=== PATIENT | female | born 1995 | race Caucasian/White ===

== ENCOUNTER → 2018-05-26 13:17 | Outpatient (CLI) | payer BC, MEDICAID, SELFPAY ==
--- NOTE | 2018-05-26 | CER_PTH ---
PATIENT: ANA AGUILAR LOC: [facility] U#:[id number] AGE/SX: 29/F ROOM: RE05/26/[address]: Dr. Ty Erazo MD : 1995 BED: DIS: SPEC #: [id number] RECD: 05/27/18 14:11 STATUS: PANCHITO KEATON #: [id number] ELANA: 05/26/18 00:[address]: Ty Erazo DEPT: SURGICAL PATHOLOGY RECD BY: Washington Esparza Tissues: Uterine cervix, NOS Procedures: Surgery Specimen Level IV HEADER OPERATION: ECC PRE-OP DIAGNOSIS: Postcoital bleeding TISSUE SUBMITTED: ECC MICROSCOPIC DIAGNOSIS ECC: Fragments of benign endocervical mucosa with mild chronic inflammation, blood and mucous. SJ:javier 05/28/18 MICROSCOPIC DESCRIPTION Slides are reviewed. GROSS DESCRIPTION Received in fixative is one container labeled with the patient's name and designated ECC. The specimen consists of multiple fragments of hemorrhagic mucoid tissue that in aggregate measure 1.5 x 1.5 x 0.2 cm. The specimen is totally submitted in one cassette. / SJ:rg 05/27/18 TC:3 CPT: 24784
[2018-05-26 17:35] LABS: Chlamydia Trachomatis by PCR Negative (Negative); Neisserai gonorrhoeae by PCR Negative (Negative); Probe Check PASS; Sample Adequacy Control PASS; Specimen Processing Control PASS
[2018-06-03 12:46] LABS: HPV APTIMA, High Risk Negative (Negative)
== END ==
PROVIDERS: Visit Provider Obstetrics & Gynecology
DX: N93.0 Postcoital and contact bleeding (principal); Z12.4 Encounter for screening for malignant neoplasm of cervix
CPT/HCPCS: 87491; 87591; 88175; 88305; G0145

== ENCOUNTER 2018-06-19 12:24 | Emergency (ER) | payer BC, MEDICAID, SELFPAY ==
[2018-06-19 12:26] VITALS: BP 145/88; PULSE 103; RESP 18; TEMP 36.4; O2SAT 99; BMI 37.5
--- NOTE | 2018-06-19 13:03 | ED.DCSUM_ITS ---
- ER Visit Summary Date of Service: 06/19/18 Chief Complaint: Laceration History of Present Illness: The patient is a 22 F who presents with a laceration to the forehead. She was hit in the head by a hanging display [place] [employer]. She sustained a laceration to the forehead above the hairline. No LOC. Her last tetanus was less than 5 years ago when she stepped on a nail. Physical Examination: Vital signs reviewed. Head exam reveals a 4 cm linear laceration just above the hairline on the left side of the forehead. No bleeding at this time. Her GCS is 15. Her neurologic exam is normal Test Results: None performed Emergency Department Course and Treatment: Patient had laceration repaired. Lidocaine was used to anesthetize the area. 8, 5-0 simple sutures were placed. Treatment Plan: Patient will be given Tylenol here for headache. She will have the stitches out in 5-7 days. She will follow-up with her PCP Disposition: Discharge Impression: Scalp laceration, 4 cm Laceration repair by ED physician This note was generated with [employer] dictation software. It may contain incorrect words, spelling, and punctuation that were not noted in review of the chart prior to signing ED Disposition - Plan for ED Patient: Chief Complaint: Laceration Referrals: Tulio Lynn MD [Primary Care Provider] -
--- NOTE | 2018-06-19 13:04 | ED.DEP ---
ED Disposition - Plan for ED Patient: Disposition: Home or Assisted Living Chief Complaint: Laceration Instructions: ED Laceration All Referrals: Tulio Lynn MD [Primary Care Provider] -
[2018-06-19] MEDS: Acetaminophen 500 MG Tablet 1000 MG PO (13:15)
[2018-06-19] MEDS: hydrOXYzine PAM 25 MG Capsule 50 MG PO (13:16)
== END 2018-06-19 13:22 | disposition home or self-care (01) ==
PROVIDERS: Emergency Provider Emergency Medicine; Family Provider Family Medicine; PCP Family Medicine
DX: S01.01XA Laceration without foreign body of scalp, initial encounter (principal); R40.2410 Glasgow coma scale score 13-15, unspecified time; W22.8XXA Striking against or struck by other objects, initial encounter; Y93.9 Activity, unspecified; Y92.512 Supermarket, store or market as the place of occurrence of the external cause
CPT/HCPCS: 12002; 99285

== ENCOUNTER 2019-09-14 07:00 | Outpatient (RCR) | payer BC, MEDICAID, SELFPAY ==
--- NOTE | 2019-08-10 08:04 | HP.PTEVAL_ITS ---
Patient's Visit Information ANA AGUILAR is a 23 year old F referred to Physical Therapy by SHERYL ANDINO with a diagnosis of R shoulder inpingement. Date of Evaluation: 08/10/19 Physical Therapist: Donald Morgan PT, ATC - Visit Plan Frequency: 2x /Week Duration: 3 Weeks Plan: R shoulder strengthening (rot cuff), scap stab ex's, UBE, and HEP - Subjective Findings: End of January symptoms began. Moving 80# machine; pulling out of car; Pain @ rest: 2/10; @ worst: 7/10. Meds: Meloxicam. Sometimes wakes up due to pain; laying on L side w R arm across body casues pain. X-ray- no fx. Reaching backwards causes pain; lifting objects overhead. Getting dressed can cause pain. R-handed. Works in [employer]; lifts up to 70# overhead - Pain R shoulder Pain Intensity (Out of 10): 2 Pain Intensity Range: 7 - Objective Neuro: B UE sensation is WNL to light touch. B bicepital reflex= 2/3. Palpation: Pt is tender along the distribution of the supraspinatus muscle. No obvious deformity noted. ROM: L shoulder flex= 165, abd= 180, ER= 55, IR WNL; R shoulder flex= 120, abd= 120, ER= 50, IR min limitation. MMT: R shoulder is grossly 4-/5 throughout and painful with all testing. L shoulder 5/5 throughout. Special tests: - Goals Goal 1:: Decrease R shoulder pain x 50% to aid with sleep Goal Time Frame: 2-4 Weeks Goal 2:: Increase R shoulder ROM for flex and abd x 30 degrees to aid with overhead lifting Goal Time Frame: 2-4 Weeks Goal 3:: Increase R shoulder strength x 1 grade to aid with job requirements Goal Time Frame: 2-4 Weeks Goal 4:: I with HEP Goal Time Frame: 2-4 Weeks - Rehabilitation Potential Physical Therapy Diagnosis: R shoulder pain, weakness, and limited ROM secondary to R shoulder impingment Rehabilitation Potential: Good - Anticipated Interventions Patient/Client Instruction: Educate patient on: Condition, Plan of Care For the Purpose of:: To decrease pain, To increase ROM, To improve muscle performance and motor function Therapeutic Exercise to Include: Strength training, Endurance training, Flexibilty training, Active ROM, Dynamic Lumbar Stabilization For the Purpose of:: To decrease pain, To increase ROM, To improve muscle performance and motor function Cryotherapy (ice pack, ice massage): Yes For the Purpose of:: To decrease pain Thank you for the opportunity to evaluate your patient. For Medicare and Medicare HMO plans, please review the plan of care and approve it. It will need to be FAXED BACK to us at [phone] for Medicare purposes. For Medicare only, by signing this I certify the plan of care. Please let me know if there are questions or concerns regarding this plan of care. Physician Signature: Date:
--- NOTE | 2019-09-14 07:25 | HP.PTREVAL ---
SHERYL ANDINO, It has been my pleasure to treat ANA AGUILAR over the last 7 visits for R shoulder inpingement. Please see the progress note below for an update on the physical therapy plan of care! Subjective: Pt reports she has been a lot more stiff lately Objective/Function: R shoulder ROM: flex and abd= 160, ER= 70, IR WNL. R shoulder pain /. R shoulder MMT: / throughout. I with HEP. Rx goals achieved Plan Plan: Follow up or discharge in 3 weeks. Goals Goal 1:: Decrease R shoulder pain x 50% to aid with sleep Goal Time Frame: 2-4 Weeks Goal Progress: Goal Met Goal 2:: Increase R shoulder ROM for flex and abd x 30 degrees to aid with overhead lifting Goal Time Frame: 2-4 Weeks Goal Progress: Goal Met Goal 3:: Increase R shoulder strength x 1 grade to aid with job requirements Goal Time Frame: 2-4 Weeks Goal Progress: Goal Met Goal 4:: I with HEP Goal Time Frame: 2-4 Weeks Goal Progress: Goal Met Anticipated Interventions Patient/Client Instruction: Educate patient on: Condition, Plan of Care For the Purpose of:: To decrease pain, To increase ROM, To improve muscle performance and motor function Therapeutic Exercise to Include: Strength training, Endurance training, Flexibilty training, Active ROM, Dynamic Lumbar Stabilization For the Purpose of:: To decrease pain, To increase ROM, To improve muscle performance and motor function Cryotherapy (ice pack, ice massage): Yes For the Purpose of:: To decrease pain Please do not hesitate to contact me at [phone] by phone or if you have questions or concerns regarding this new plan of care! Sincerely, Donald Morgan, PT, ATC
--- NOTE | 2019-11-02 13:57 | HP.PT.NRP ---
HP - Discharge Summary (1) - Patient Information ANA AGUILAR was seen in my office for initial evaluation on 08/10/19. The following Plan of Care was established for this patient: Initial Frequency: 2x /Week Initial Duration: 3 Weeks - Anticipated Interventions Patient/Client Instruction: Educate patient on: Condition, Plan of Care For the Purpose of:: To decrease pain, To increase ROM, To improve muscle performance and motor function Therapeutic Exercise to Include: Strength training, Endurance training, Flexibilty training, Active ROM, Dynamic Lumbar Stabilization For the Purpose of:: To decrease pain, To increase ROM, To improve muscle performance and motor function Cryotherapy (ice pack, ice massage): Yes For the Purpose of:: To decrease pain This patient was last seen in our office . Pertinent comments regarding their Physical therapy will appear below: Pt was treated for 7 PT visits for R shoulder pain through the date of 09/14/19. Pt has not returned through todays date and is therefore discontinued at this time. At this point I will be discontinuing this patient from physical therapy. I would be happy to see this patient again in the future if found appropriate by the physician. Thank you! Donald Morgan, PT, ATC
== END 2019-09-14 19:00 | disposition home or self-care (01) ==
LOC: PT 07:00
PROVIDERS: Family Provider Physician Assistant; PCP Physician Assistant
DX: M75.41 Impingement syndrome of right shoulder (principal)
CPT/HCPCS: 97110; 97161; 97530

== ENCOUNTER → 2020-08-01 | Outpatient (CLI) | payer BC, SELFPAY ==
[2020-08-04 16:24] LABS: HPV Reflexed? NOT INDICATED
== END | disposition home or self-care (01) ==
LOC: LABSPEC 10:45
PROVIDERS: PCP Physician Assistant; Visit Provider Obstetrics & Gynecology
DX: Z12.4 Encounter for screening for malignant neoplasm of cervix (principal)
CPT/HCPCS: 88175; G0145

== ENCOUNTER 2021-04-17 09:24 | Emergency (ER) | payer BC, SELFPAY ==
[2021-04-17 09:25] VITALS: BP 157/86; PULSE 92; RESP 16; TEMP 36.6; O2SAT 100; BMI 39.8
--- NOTE | 2021-04-17 09:28 | NURSING ---
NO OLD EKGS
--- NOTE | 2021-04-17 09:38 | EKG12_ITS ---
Test Reason : CP Blood Pressure : / mmHG Vent. Rate : 098 BPM Atrial Rate : 098 BPM P-R Int : 132 ms QRS Dur : 092 ms QT Int : 356 ms P-R-T Axes : 048 033 033 degrees QTc Int : 454 ms Normal sinus rhythm Normal ECG Confirmed by KATHY LISA, UYEN ([id number]), editor at large ANA SANTOS ([id number]) on 04/18/2021 12:49:44 PM Referred By: MAKENNA/WELLINGTON Confirmed By:JADA CHAVEZ MD
--- NOTE | 2021-04-17 09:38 | EX.ED.DYSGE1 ---
HPI History of Present Illness Chief Complaint: Chest Pain Detail of Chief Complaint: Shortness of breath and chest pain for about a week Informant: patient Narrative Narrative: Patient presents to the emergency department after being sent over from urgent care. Patient states that she has been short of breath increasingly over the last week. She is noticed it more with exertion as far as walking upstairs and just walking. Patient about 4 days ago started noticing some chest discomfort and a catching sensation in her left chest when she takes deep breath. Patient is on oral contraceptive. She tells me she had Covid in September 2020. She has noticed that she is maybe a little more short of breath since having Covid. Patient does not have history of PE or DVT. She has had no recent travel or surgery. Prior similar symptoms: No PFSH PFSH Medical History (Updated 04/17/21 @ 09:35 by Fabiola Gould) COVID-19 Home Medications norgestimate-ethinyl estradiol [Brandy] 1 tab PO DAILY 04/17/21 [History Last Taken Unknown] Allergy/AdvReac Type Severity Reaction Status Date / Time venom-honey bee Allergy Severe Anaphylaxis Verified 04/17/21 09:27 [bee venom (honey bee)] Surgical History (Updated 04/17/21 @ 09:35 by Fabiola Gould) Hx of tonsillectomy Social History Smoking Status: Never smoker ROS [facility] [email or web address]] ED Constitutional Constitutional ED: Reports systems reviewed and no addt'l complaints, except as documented; Denies body ache(s), change in weight or chills Eyes Eyes: Denies acute decrease in peripheral vision, change in vision, double vision or loss of vision ENT ENT ED: Reports none; Denies ear pain, lip swelling, loss taste/smell, neck pain, otalgia or sore throat Cardiovascular Cardiovascular: Reports none and chest pain; Denies abdominal pain, chest pain with activity, leg edema, lightheadedness, palpitations, rapid heart rate or syncope Respiratory/Chest Respiratory/Chest: Reports none and dyspnea; Denies change in mental status, cough, dry cough, hemoptysis, shortness of breath at rest or shortness of breath with exertion Gastrointestinal Gastrointestinal: Reports none; Denies abdominal pain, change in stool character, diarrhea, hematemesis, hematochezia, melena, rectal bleeding or vomiting Genitourinary Genitourinary ED: Reports none; Denies abdominal discomfort, anuria, dysuria, genital pain or polyuria Musculoskeletal Musculoskeletal: Reports none; Denies arthralgias, back pain, difficulty walking, extremity pain, muscle weakness or myalgias Integumentary Reports none; Denies abscess or rash Neurologic Neurologic: Reports none; Denies abnormal gait, confusion, focal weakness, frequent falls, headache(s), loss of vision, numbness, paresthesias, radicular pain, vertigo or weakness Psychiatric Psychiatric: Reports systems reviewed and no addt'l complaints, except as documented and none; Denies behavioral changes, confusion, difficulty concentrating, hallucinations, suicidal ideation, tactile hallucinations or visual hallucinations Endocrine Endocrinology: Denies none, cold intolerance, excessive sweating, fatigue or heat intolerance Hematologic/Lymphatic Hematologic/Lymphatic: Reports none; Denies anemia, easy bleeding or easy bruising Allergic/Immunologic Allergic/Immunologic ED: Denies as per HPI, none, lip swelling, mouth swelling, throat swelling, tongue swelling or hives EXAM Physical Exam Const Vital Signs: 04/17/21 09:25 Temperature 97.8 F Temperature Source Temporal Pulse Rate 92 Respiratory Rate 16 Blood Pressure 157/86 H Blood Pressure Mean 109 Pulse Ox 100 Oxygen Delivery Method Room Air Positive well nourished and well developed General Appearance ED: well developed and NAD HEENT Reports TM's clear and moist mucous membranes normocephalic and atraumatic; Negative for trauma or tenderness Tympanic Membrane ED: Yes TM's clear Eyes PERRL and EOMs intact bilaterally General Eye ED: Negative for pale conjunctiva or scleral icterus Neck no lymphadenopathy, supple and no JVD General: Negative for tenderness Chest Wall inspection of chest normal and palpation of chest normal Chest: Negative for tenderness Resp normal respiratory effort and clear to auscultation bilaterally Effort and Inspection: Negative for respiratory distress or pain with movement Auscultation: Negative for rhonchi, wheezes or diminished lung sounds Cardio regular rate, regular rhythm, S1 normal heart sound, S2 normal heart sound and no murmurs Peripheral Pulses: pulses 2+ throughout GI normal to inspection, nondistended, normoactive bowel sounds, soft to palpation, non-tender, non-distended and no masses Back/Spine no CVA tenderness and no thoracic nor lumbar tenderness Extremity normal to inspection General Extremety ED: Negative for edema General Extremity: Negative for edema Neuro oriented x3, CN's II-XII intact bilaterally, no sensory deficits noted and gait normal Sensorium / Orientation: awake, alert, oriented to person, oriented to place and oriented to time Motor Exam: strength 5/5 throughout and strength abnormal Psych mental status grossly normal Skin no rashes or lesions noted and no wounds MDM MDM MDM Narrative Medical decision making narrative: Patient's work-up in the department unremarkable. Patient will be discharged home with instructions to follow-up with her primary care physician within the next week. She is to return if increased shortness of breath, worsening chest pain, or condition should worsen anyway. Lab Data Attestation: I reviewed the patient's lab results. Labs: Laboratory Results - last 24 hr 04/17/21 04/17/21 04/17/21 09:40 09:40 09:40 WBC 8.7 RBC 5.04 Hgb 14.5 Hct 43.2 MCV 85.7 MCH 28.8 MCHC 33.6 RDW Std Deviation 40.2 RDW Coeff of Pina 12.9 Plt Count 340 MPV 10.0 Immature Gran % (Auto) 0.100 Neut % (Auto) 64.6 Lymph % (Auto) 26.1 [place] % (Auto) 7.1 Eos % (Auto) 1.8 Baso % (Auto) 0.3 Absolute Neuts (auto) 5.6 Absolute Lymphs (auto) 2.28 Nucleated RBC % 0 D-Dimer Quant (PE/DVT) 0.32 Sodium 138 Potassium 3.7 Chloride 107 Carbon Dioxide 26.0 Anion Gap 5 BUN 7 Creatinine 0.64 Estim Creat Clear Calc 109.22 Est GFR (MDRD) Af Amer 143 Est GFR (MDRD) Non-Af 118 BUN/Creatinine Ratio 10.9 Glucose 97 Calcium 9.1 Troponin I < 0.015 Radiography Chest X-Ray - ED: 1 View Diagnostic Testin view chest x-ray obtained interpreted by myself as no acute disease process. There is no evidence of infiltrate or pneumothorax or pneumomediastinum. Official report from radiology pending. EKG Initial EKG: Attestation: I personally reviewed and interpreted this EKG as follows: Interpretation: Sinus Rhythm Comments: Sinus rhythm with a ventricular rate of 98 bpm with no acute ST segment changes. Discharge Plan Triage Chief Complaint: Chest Pain ED Provider: Billy Veloz Dx/Rx/DC Orders Instructions: ED Chest Pain, Uncertain Cause Prescriptions: No Action norgestimate-ethinyl estradiol [Brandy] 0.25-35 mg-mcg tablet 1 tab PO DAILY RF: 0 Primary Care Provider: Lulu Chang Referrals: Lulu Chang, PA [Primary Care Provider] - 5-7 Days Disposition Disposition: Home, self care
[2021-04-17] MEDS: 0.9% Normal Saline 1,000 ML 150 ML IV (09:47)
[2021-04-17 09:51] LABS: Absolute Lymphocyte Count 2.28 X10^3/uL (0.83-4.51); Absolute Neutrophil Count 5.6 X10^3/uL (2.0-7.7); Basophil# 0.03 X10^3/uL; Basophil% 0.3 % (0-1); Eosinophil# 0.16 X10^3/uL; Eosinophils% 1.8 % (0-5); Hematocrit 43.2 % (37-47); Hemoglobin 14.5 g/dL (12.0-15.0); Lymphocyte # 2.28 X10^3/ul (0.83-4.51); Lymphocyte % 26.1 % (19-41); Mean Corp Hgb Conc 33.6 g/dL (32-36); Mean Corpuscular Hgb 28.8 pg (27.0-32.0); Mean Corpuscular Volume 85.7 fL (81-99); Monocyte# 0.62 X10^3/uL; Monocyte% 7.1 % (0-10); NRBC Flagged by Analyzer 0 % (0-5); Neutrophil # 5.63 X10^3/uL (2.7-7.7); Neutrophil % 64.6 % (47-70); Platelet Count 340 K/mm3 (150-450); RBC Distribution Width CV 12.9 % (11.6-14.6); RBC Distribution Width SD 40.2 fl (35.1-43.9); Red Blood Count 5.04 M/mm3 (4.2-5.4); White Blood Count 8.7 K/mm3 (4.4-11.0)
[2021-04-17 10:08] LABS: D-Dimer Quantitative (DVT/PE) 0.32 FEU/ug/m (0.27-0.49)
[2021-04-17 10:10] LABS: Anion Gap 5 (5-15); BUN 7 mg/dL (7-18); BUN/Creat Ratio 10.9 RATIO (10-20); Calcium,Total 9.1 mg/dL (8.5-10.1); Chloride 107 mmol/L (98-107); Creatinine, Serum 0.64 mg/dL (0.55-1.02); EST Glomerular Filtration Rate 118 mL/min (>60); Est Glom Filt Rate - Afr Amer 143 mL/min (>60); Estimated Creatinine Clearance 109.22 ml/min; Glucose 97 mg/dL (74-106); Potassium 3.7 mmol/L (3.5-5.1); Sodium Level 138 mmol/L (136-145)
--- NOTE | 2021-04-17 10:28 | RAD_ITS ---
STUDY: X-RAY CHEST REASON FOR EXAM: Female, 25 years old. Dyspnea TECHNIQUE: Single AP portable view of the chest. COMPARISON: None. FINDINGS: EKG electrodes are seen. The lungs are clear and expanded. There is no demonstrated pleural abnormality. Normal size heart. Normal mediastinum and ria. Normal visualized pulmonary arteries. Normal visualized aortic arch and descending thoracic aorta. Normal visualized thoracic spine. Normal visualized ribs, clavicles, and shoulders. There is no demonstrated abnormality of the visualized soft tissue structures of the upper abdomen. RAD/Chest 1 View (Portable) IMPRESSION: Normal x-ray examination of the chest. Electronically Signed: Geovany Ray MD at 10:57 EDT , Service support ,
[2021-04-17 11:36] VITALS: BP 125/90; PULSE 93; RESP 16; O2SAT 97
== END 2021-04-17 11:34 | disposition home or self-care (01) ==
PROVIDERS: Emergency Provider Emergency Medicine; PCP Physician Assistant
DX: R07.89 Other chest pain (principal); R06.00 Dyspnea, unspecified; Z86.16 Personal history of COVID-19; Z79.3 Long term (current) use of hormonal contraceptives
CPT/HCPCS: 71045; 80048; 84484; 85025; 85379; 93005; 96360; 96361; 99283; J7030; A4216